=== PATIENT | male | born 1960 | race Caucasian/White ===

== ENCOUNTER 2017-01-15 01:37 | Emergency (ER) | payer MEDICAID ==
--- NOTE | 2017-01-15 20:05 | ER ---
ADMIT: 01/15/2017 RM/LOC: ER [facility] MR#: [id number] [facility] [address] [place], [place] [id number] BRADY JOSEPH [address] [place] [address] Emergency Room Report SEX: M AGE: 56 : 1960 DATE: 01/15/2017 TIME: 01:37. Please refer to my T-sheet for complete H and P. HISTORY OF PRESENT ILLNESS: Briefly, the patient is a 56-year-old comes in with coughing, short of breath, hurts in his chest when he coughs. PHYSICAL EXAMINATION: VITAL SIGNS: Blood pressure 141/88, pulse 85, respirations 18, temp 97.7, and saturating 96%. GENERAL: In no acute distress. HEENT: Grossly normal. Mild rhinorrhea. LUNGS: Trace wheeze. HEART: Regular. ABDOMEN: Soft. EMERGENCY DEPARTMENT COURSE: EKG was sinus rhythm, rate 86, no changes. I gave him prednisone 20 p.o., Zithromax 500 p.o., albuterol 2 puffs with teaching, which we filled here. I had a long discussion. He was ready for discharge. ASSESSMENT: 1. Bronchitis. 2. Chest pain, atypical. PLAN: Z-Catrachito and albuterol q.4 hours. Follow up with [facility] in the next week. Return if worse. Karson Phillip MD/ cayetano JOB #: [id number] CC: Karson Phillip MD, Attending Physician
== END 2017-01-15 02:45 | disposition home or self-care (01) ==
LOC: ER 01:37
DX: J20.9 Acute bronchitis, unspecified (principal)